=== PATIENT | male | born 1980 | race Caucasian/White ===

== ENCOUNTER 2016-11-24 15:57 | Emergency (ER) | payer SELFPAY ==
[~2016-11-24] VITALS: Ht 175.3 cm; Wt 79.5 kg
[2016-11-24] MEDS ORDERED: HYDROCODONE/ACETAMINOPHEN 5-325 MG TABLET PO ONE (17:30)
[2016-11-24] MEDS ORDERED: PERTUSS(ACELL),DIPH,TET VAC/PF 0.5 ML VIAL IM ONE (17:30)
[2016-11-24] MEDS ORDERED: LIDOCAINE HCL 1% 10 ML VIAL INJ ONE (18:45)
[2016-11-24 19:54] VITALS: BP 131/78
== END 2016-11-24 19:55 | disposition home or self-care (01) ==
LOC: EMS 16:00
DX: S61.216A Laceration without foreign body of right little finger without damage to nail, initial encounter (principal); W45.8XXA Other foreign body or object entering through skin, initial encounter; Y93.89 Activity, other specified; Y92.89 Other specified places as the place of occurrence of the external cause; Y99.8 Other external cause status
CPT/HCPCS: 12002; 73130; 90471; 90715; 99284; J3490

== ENCOUNTER 2016-12-13 14:52 | Emergency (ER) | payer SELFPAY ==
[~2016-12-13] VITALS: Ht 175.3 cm; Wt 79.5 kg
[2016-12-13 16:24] VITALS: BP 112/80
== END 2016-12-13 16:48 | disposition home or self-care (01) ==
LOC: EMS 14:53
DX: Z48.02 Encounter for removal of sutures (principal)
CPT/HCPCS: 99282